=== PATIENT | female | born 2000 | race African-American/Black ===

== ENCOUNTER 2021-08-03 18:52 | Emergency (ER) | payer MEDICAID ==
[~2021-08-03] VITALS: Ht 152.4 cm; Wt 63.6 kg
[2021-08-03 19:40] VITALS: BP 105/51
--- NOTE | 2021-08-03 19:52 | PHYS DOC ---
Past Medical History Past Medical History: STD Past Surgical History: No Surgical History General Adult EDM: Chief Complaint: FEMALE UROGENTIAL PROBLEMS HPI: HPI: Patient is a 20-year-old female that presents today for possible STI or urinary tract infection. Patient states that she has had yellow vaginal discharge for a couple of days, she says that she did a urinalysis in her office today which showed leukoesterase and she is concerned that she either has a urinary tract infection STI. Patient denies painful urination or frequency in urination at this time, and does states she has had unprotected sex in the last couple of weeks. Review of Systems: Review of Systems: Constitutional: Denies fever or chills. [] Eyes: Denies change in visual acuity. [] HENT: Denies nasal congestion or sore throat. [] Respiratory: Denies cough or shortness of breath. [] Cardiovascular: Denies chest pain or edema. [] GI: Denies abdominal pain, nausea, vomiting, bloody stools or diarrhea. [] /[employer]: Yellow vaginal discharge denies dysuria. [] Musculoskeletal: Denies back pain or joint pain. [] Integument: Denies rash. [] Neurologic: Denies headache, focal weakness or sensory changes. [] Endocrine: Denies polyuria or polydipsia. [] Lymphatic: Denies swollen glands. [] Psychiatric: Denies depression or anxiety. [] Heart Score: C/O Chest Pain: No Risk Factors: Risk Factors: DM, Current or recent (<one month) smoker, HTN, HLP, family history of CAD, obesity. Risk Scores: Score 0 - 3: 2.5% MACE over next 6 weeks - Discharge Home Score 4 - 6: 20.3% MACE over next 6 weeks - Admit for Clinical Observation Score 7 - 10: 72.7% MACE over next 6 weeks - Early Invasive Strategies Allergies: Allergies: Allergies Coded Allergies Type Severity Reaction Last Updated Verified No Known Drug Allergies 08/03/21 No Physical Exam: PE: Constitutional: Well developed, well nourished, no acute distress, non-toxic appearance. [] HENT: Normocephalic, atraumatic, bilateral external ears normal, oropharynx moist, no oral exudates, nose normal. [] Eyes: PERRLA, EOMI, conjunctiva normal, no discharge. [] Neck: Normal range of motion, no tenderness, supple, no stridor. [] Cardiovascular:Heart rate regular rhythm, no murmur [] Lungs & Thorax: Bilateral breath sounds clear to auscultation [] Abdomen: Bowel sounds normal, soft, no tenderness, no masses, no pulsatile masses. [] Skin: Warm, dry, no erythema, no rash. [] Back: No tenderness, no CVA tenderness. [] Extremities: No tenderness, no cyanosis, no clubbing, ROM intact, no edema. [] Neurologic: Alert and oriented X 3, normal motor function, normal sensory function, no focal deficits noted. [] Psychologic: Affect normal, judgement normal, mood normal. [] Current Patient Data: Labs: Laboratory Tests Test 08/03/21 19:34 POC Urine HCG, Qualitative Hcg negative (Negative) Vital Signs: Vital Signs Date Time Temp Pulse Resp B/P (MAP) Pulse Ox O2 Delivery O2 Flow Rate FiO2 08/03/21 19:40 99.0 76 18 105/51 (69) 97 Room Air 99.0 EKG: EKG: [] Radiology/Procedures: Radiology/Procedures: [] Course & Med Decision Making: Course & Med Decision Making Pertinent Labs and Imaging studies reviewed. (See chart for details) 2000 patient in no acute distress, with her vaginal discharge reporting I will treat her for STI, she did have trichomonas noted in her urine I will treat her for trichomoniasis as well, I did speak to patient about decreasing the incidence of STIs by using condoms and avoiding unprotected sex. Patient is also instructed to abstain from sex for the next 7 to 10 days or to use a condom to prevent the transmission of STIs. Patient verbalized understanding of this. Sadie Disclaimer: Sadie Disclaimer: This electronic medical record was generated, in whole or in part, using a voice recognition dictation system. Departure Departure Impression: Primary Impression: Trichomonas infection Additional Impression: Sexually transmitted disease exposure Disposition: HOME / SELF CARE / HOMELESS Condition: STABLE Referrals: UNKNOWN PCP NAME (PCP) Patient Instructions: Sexually Transmitted Disease, Trichomoniasis Additional Instructions: Doxycycline take 1 tablet twice daily for 7 full days Flagyl take 1 tablet twice daily for 7 full days Abstain from sexual activity or use condom during sex for the next 7 to 10 days until you have completed your antibiotics Follow-up with your primary care physician or one of the listed clinics below for further management if you continue to have symptoms after antibiotics are completed. [facility] [address] [place] [address] [facility] [address] [place] [address] [facility] [address] [place] [address] [facility] [address] [place] [address] [facility] [address] [place] [address] [address] [place] [address] [address] [place] [address] [facility] [address] [place] [address] [facility] [address] [place] [address] [facility] [address] [place] [address] Scripts Doxycycline Hyclate (DOXYCYCLINE HYCLATE) 100 Mg Capsule 1 CAP PO BID, #14 CAP Prov: NELIA YANEZ [employer]AL [employer]IM E[employer]OR 08/03/21 Metronidazole (METRONIDAZOLE) 500 Mg Tablet 1 TAB PO BID for 7 Days, #14 TAB 0 Refills Prov: NELIA YANEZ [employer]AL TRIM ERECTOR 08/03/21 NELIA YANEZ METAL TRIM ERECTOR Aug 03, 2021 19:52
[2021-08-03 19:56] LABS: BACTERIA,URINE FEW /HPF (0-FEW); TRICHOMONAS,URINE PRESENT
[2021-08-03] MEDS ORDERED: cefTRIAXone IM 500 MG VIAL. IM ONE (20:00)
[2021-08-03] MEDS ORDERED: METR-34 PO (20:18)
[2021-08-03] MEDS ORDERED: DOXY100C3 PO (20:18)
== END 2021-08-03 20:35 | disposition home or self-care (01) ==
LOC: ER 18:52
DX: A59.9 Trichomoniasis, unspecified (principal); Z20.2 Contact with and (suspected) exposure to infections with a predominantly sexual mode of transmission
CPT/HCPCS: 81001; 81025; 87086; 87491; 87591; 96372; 99283; J0696; Q0111